=== PATIENT | female | born 1930 | race Caucasian/White ===

== ENCOUNTER → 2016-09-22 | Outpatient (CLI) | payer OTHER ==
[~2016-09-22] MED LIST: BISA5TAB8 PO; GLIM2TAB PO; HYDR1TAB66 PO; MAGN250T7 PO; MELO-198 PO; MEMA10TA PO; METF-380 PO; MOVE FREE PO; MULT-608 PO; OMEG1CAP51 PO; OXAZ15CA PO; POTA8TAB PO; VITAMIN B6 PO; WRF5T PO; [UNRECOGNIZED DRUG - CODE] PO
[2016-09-22 13:20] LABS: BILIRUBIN,URINE NEGATIVE (NEGATIVE); KETONES,URINE NEGATIVE (NEGATIVE); LEUKOCYTE ESTERASE ,URINE 1+ (NEGATIVE); NITRITE,URINE NEGATIVE (NEGATIVE); PH,URINE 8 (5-9); PROTEIN,URINE NEGATIVE (NEGATIVE); UROBILINOGEN,URINE 4 MG/DL (NORMAL)
[2016-09-22 13:42] LABS: TRIPLE PHOSPHATE CRYSTAL,UR LARGE /LPF
== END ==
PROVIDERS: ATTEND Internal Medicine
DX: R30.0 Dysuria (principal); R82.99 Other abnormal findings in urine
CPT/HCPCS: 81000; 87077; 87088; 87186

== ENCOUNTER → 2016-10-14 | Outpatient (CLI) | payer OTHER ==
[2016-10-14 15:38] LABS: BILIRUBIN,URINE NEGATIVE (NEGATIVE); KETONES,URINE NEGATIVE (NEGATIVE); LEUKOCYTE ESTERASE ,URINE 3+ (NEGATIVE); NITRITE,URINE POSITIVE (NEGATIVE); PH,URINE 8 (5-9); PROTEIN,URINE 2+ (NEGATIVE); UROBILINOGEN,URINE 1 MG/DL (NORMAL)
[2016-10-14 15:50] LABS: WBC,URINE TNTC /HPF
== END ==
PROVIDERS: ATTEND Internal Medicine
DX: R30.9 Painful micturition, unspecified (principal)
CPT/HCPCS: 81000; 87077; 87088; 87186